=== PATIENT | male | born 1960 | race Caucasian/White ===

== ENCOUNTER 2022-01-30 18:07 | Emergency (ER) | payer BC, OTHER ==
[~2022-01-30] VITALS: Ht 170.2 cm; Wt 74.8 kg
[2022-01-30] MEDS ORDERED: FLUORESCEIN SODIUM OPHTH 1 EA STRIP OP ONE (19:00)
[2022-01-30] MEDS ORDERED: TETRACAINE HCL 0.5% OPHTALMIC 15 ML BOTTLE OP ONE (19:00)
[2022-01-30] MEDS ORDERED: FLUORESCEIN SODIUM OPHTH 1 EA STRIP ONE (19:20)
--- NOTE | 2022-01-30 19:30 | NUR ---
TO ER BED 17. BIBSELF C/O EYE PAIN, PT STATES, "was working w/machine. Aluminum metal may have gotten into left eye". REDNESS NOTED. PT AWAITING MD GRIFFITH
[2022-01-30] MEDS ORDERED: ERYT3.5O9 LEFTEYE (19:46)
[2022-01-30 19:57] VITALS: BP 115/70
--- NOTE | 2022-01-30 19:57 | NUR ---
Patient discharged to home in stable condition. Written and verbal after care instructions given. Patient verbalizes understanding of instruction.
== END 2022-01-30 19:57 | disposition home or self-care (01) ==
LOC: ER 18:12
DX: S05.02XA Injury of conjunctiva and corneal abrasion without foreign body, left eye, initial encounter (principal); E78.00 Pure hypercholesterolemia, unspecified; F17.200 Nicotine dependence, unspecified, uncomplicated; Z79.899 Other long term (current) drug therapy; X58.XXXA Exposure to other specified factors, initial encounter; Y93.89 Activity, other specified; Y92.89 Other specified places as the place of occurrence of the external cause; Y99.0 Civilian activity done for income or pay